=== PATIENT | male | born 1945 | race Caucasian/White ===

== ENCOUNTER 2017-01-10 16:02 | Emergency (ER) | payer MEDICARE, OTHER ==
--- NOTE | 2017-01-10 16:49 | RAD ---
FOUR VIEWS OF THE LEFT KNEE 01/10/17 HISTORY: Trauma. COMPARISON: None available. FINDINGS: The patella appears enlarged and there is osseous fragment lateral to the patella. 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 No obvious acute fracture is seen involving the patella. There is mild tricompartme nt osteophytosis. No significant joint space narrowing is appreciated although there may be mild nehal rowing in the patellofemoral joint. No dislocation is seen. There is a small joint effusion present and there is also subcutaneous soft tissue swelling anterior to the knee. IMPRESSION: 1. 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 No obvi ous acute fracture is seen. 2. Small joint effusion with evidence of subcutaneous soft tissue swelling anterior to the knee . POS: [facility]
== END 2017-01-10 17:10 | disposition home or self-care (01) ==
LOC: MADERS 16:02
DX: S80.02XA Contusion of left knee, initial encounter (principal); I10 Essential (primary) hypertension; W19.XXXA Unspecified fall, initial encounter